=== PATIENT | male | born 1940 | race Caucasian/White ===

== ENCOUNTER → 2020-05-12 | Outpatient (CLI) | payer MEDICARE ==
--- NOTE | 2020-05-12 09:42 | RAD ---
SCAN OF ABDOMINAL AORTA History:Reason: AAA, INTERSTITAL PULMONARY DISEASE / Spl. Instructions: / History: Comparison: None Technique: Sonographic examination of the abdominal aorta was performed and multiple static images were obtained. Proximal aorta measures 2.7 cm anterior posterior by 2.9 cm transverse. Mid aorta measures 2.47 m anterior posterior by 2.0 cm transverse and distal aorta measures 2.0 x 2.0 cm. Right common iliac artery measures 1.0 cm and left measures 1.1 cm. Mild atheromatous plaque throughout the aorta. Peak systolic velocity 72 cm/s. Impression: 1. Mildly ectatic proximal abdominal aorta. 2. Mild atheromatous plaque. Electronically signed by: Saad Pena DO (05/12/2020 9:39 AM) [id number]
--- NOTE | 2020-05-12 18:19 | RAD ---
EXAM: CT CHEST WITHOUT CONTRAST HISTORY: Interstitial pulmonary disease COMPARISON: None TECHNIQUE: Helical CT of the chest performed without contrast. Coronal and sagittal reformats were obtained. One or more of the following individualized dose reduction techniques were utilized for this examination: 1. Automated exposure control 2. Adjustment of the mA and/or kV according to patient size 3. Use of iterative reconstruction technique. FINDINGS: Thyroid gland and thoracic inlet: 1.5 cm nodule in the posterior left thyroid lobe. Heart and great vessels: Heart is normal in size. There are extensive coronary artery calcifications. Thoracic aorta is at the upper limit of normal measuring 4 cm in diameter. Mediastinum and jaz: No lymphadenopathy. Lungs and pleura: There are nonspecific subpleural reticular changes in the posterior lower lobes. No bronchiectasis, or honeycombing. No emphysematous changes. Mild airway wall thickening, nonspecific. No pulmonary nodules. No pleural effusion. Chest wall and axillae: No axillary lymphadenopathy. Upper abdomen: There are surgical clips near the gastroesophageal junction. Bones: . Probable old mild compression deformities at T2 and T3. Moderate degenerative disc disease at L2-L3. IMPRESSION: 1. Mild nonspecific subpleural reticular changes in the dependent lower lobes and mild airway wall thickening. Otherwise normal appearance of the lungs. 2. Upper limit of normal thoracic aorta measuring 4 cm in diameter. Electronically signed by: Celi Driver MD (05/12/2020 6:16 PM) [id number]
== END ==
LOC: US 08:51
PROVIDERS: ATTEND Family Medicine
DX: E04.1 Nontoxic single thyroid nodule (principal); I71.4 Abdominal aortic aneurysm, without rupture; J84.89 Other specified interstitial pulmonary diseases; I25.10 Atherosclerotic heart disease of native coronary artery without angina pectoris; J92.9 Pleural plaque without asbestos
CPT/HCPCS: 71250; 76770